=== PATIENT | male | born 1940 | race Caucasian/White ===

== ENCOUNTER → 2017-04-23 | Outpatient (CLI) | payer OTHER, BC ==
[2017-04-23 18:15] LABS: BASO % 0.3 %; BASO ABS # 0.02 K/uL (0-0.2); COMPLETE YES; EOS % 3.9 %; HEMATOCRIT 45.6 % (42-52); IG% 0.3 %; LYMPH % 22.2 %; LYMPH ABS # 1.43 K/uL (1.2-3.4); MEAN CELL VOLUME 83.7 fL (80-100); MEAN CORPUSCULAR HEMOGLOBIN 27.3 pg (25-34); MEAN CORPUSCULAR HGB CONC 32.7 g/dl (32-36); MEAN PLATELET VOLUME 10.7 fL (7.4-10.4); MONO % 12.7 %; NEUT % 60.6 %; PLATELET COUNT 239 K/uL (130-400); RED BLOOD COUNT 5.45 M/uL (4.7-6.1); WHITE BLOOD COUNT 6.45 K/uL (4.8-10.8)
[2017-04-23 18:24] LABS: ALT/SGPT 30 U/L (12-78); AST/SGOT 21 U/L (15-37); BLOOD UREA NITROGEN 20 mg/dl (7-18); BUN/CREATININE RATIO 12.6 (10-20); CALCIUM 8.6 mg/dl (8.5-10.1); CARBON DIOXIDE 28 mmol/L (21-32); CHLORIDE 107 mmol/L (98-107); CHOLESTEROL 157 mg/dl (0-200); GLUCOSE 73 mg/dl (70-99); POTASSIUM 4.7 mmol/L (3.5-5.1); SODIUM 139 mmol/L (136-145); TRIGLYCERIDES 240 mg/dl (0-150); URIC ACID 7.7 mg/dl (2.6-7.2); VERY LOW DENSITY LIPOPROT CALC 48 mg/dl
[2017-04-23 18:33] LABS: ALKALINE PHOSPHATASE 62 U/L (45-117); CHOLESTEROL/HDL RATIO 5.6; HDL CHOLESTEROL 28 mg/dl; LDL CHOLESTEROL CALCULATED 81 mg/dl; TOTAL IRON BINDING CAPACITY 371 mcg/dl (250-450)
[2017-04-23 18:42] LABS: RATIO 11.1 mcg/mg (0-30.0)
[2017-04-24 07:17] LABS: ESTIMATED AVERAGE GLUCOSE 131 mg/dl; HA1C FLAG Normal (Normal)
--- NOTE | 2017-04-30 08:23 | CODING QUERY MEDICAL NECESSITY ---
SUPPORTING DIAGNOSIS NEEDED Chantal MANDUJANO, A supporting diagnosis is required for the test/procedure performed on this patient in order for us to be reimbursed by the patient's insurance. Please provide a supporting diagnosis for the following test/procedure listed below next to the test name along with your signature. *If there is no additional diagnosis for this patient that would support the following test/procedure please document that below next to the test/procedure. Test(s)/Procedure(s) that require a supporting diagnosis: * ([id number]) B12 VITAMIN LEVEL DIAGNOSIS: * ([id number]) FOLATE LEVEL DIAGNOSIS: DATE OF SERVICE: 04/23/17 Provider Signature: Date: Thank you Harjit Purcell [facility] Information Management Once completed, please kindly fax back to [phone] For questions please call [phone]
== END | disposition home or self-care (01) ==
LOC: C.LABMFLN 14:41
PROVIDERS: ATTEND Physician Assistant
DX: E11.9 Type 2 diabetes mellitus without complications (principal); M10.9 Gout, unspecified; N25.81 Secondary hyperparathyroidism of renal origin; I10 Essential (primary) hypertension; K21.9 Gastro-esophageal reflux disease without esophagitis; E78.5 Hyperlipidemia, unspecified; E03.9 Hypothyroidism, unspecified; Z86.2 Personal history of diseases of the blood and blood-forming organs and certain disorders involving the immune mechanism

== ENCOUNTER → 2017-07-02 | Outpatient (CLI) | payer OTHER, BC ==
[2017-07-02 18:27] LABS: ALT/SGPT 29 U/L (12-78); AST/SGOT 22 U/L (15-37)
== END | disposition home or self-care (01) ==
LOC: C.LABMFLN 13:10
PROVIDERS: ATTEND Internal Medicine Cardiovascular Disease
DX: I50.22 Chronic systolic (congestive) heart failure (principal); I25.10 Atherosclerotic heart disease of native coronary artery without angina pectoris

== ENCOUNTER → 2017-08-09 | Outpatient (CLI) | payer OTHER, BC ==
[2017-08-09 12:37] LABS: BASO % 0.3 %; BASO ABS # 0.02 K/uL (0-0.2); EOS % 3.1 %; EOS ABS # 0.22 K/uL (0-0.5); HEMATOCRIT 44.8 % (42-52); HEMOGLOBIN 14.8 g/dL (14.0-18.0); IG# 0.02 K/uL (0.00-0.02); LYMPH % 15.6 %; LYMPH ABS # 1.12 K/uL (1.2-3.4); MEAN CELL VOLUME 87.2 fL (80-100); MEAN CORPUSCULAR HEMOGLOBIN 28.8 pg (25-34); MEAN PLATELET VOLUME 10.8 fL (7.4-10.4); MONO % 11.6 %; MONO ABS # 0.83 K/uL (0.11-0.59); NEUT % 69.1 %; NEUT ABS # 4.96 K/uL (1.4-6.5); PLATELET COUNT 224 K/uL (130-400); RED CELL DISTRIBUTION WIDTH CV 15.6 % (11.5-14.5); WHITE BLOOD COUNT 7.17 K/uL (4.8-10.8)
[2017-08-09 13:15] LABS: ALBUMIN 3.5 gm/dl (3.4-5.0); ALT/SGPT 33 U/L (12-78); AST/SGOT 22 U/L (15-37); BLOOD UREA NITROGEN 19 mg/dl (7-18); CARBON DIOXIDE 29 mmol/L (21-32); CREATININE 1.28 mg/dl (0.60-1.40); GLUCOSE 141 mg/dl (70-99); POTASSIUM 4.2 mmol/L (3.5-5.1); SODIUM 137 mmol/L (136-145)
[2017-08-09 13:20] LABS: ALKALINE PHOSPHATASE 85 U/L (45-117)
== END | disposition home or self-care (01) ==
LOC: C.LABMFLN 10:46
PROVIDERS: ATTEND Physician Assistant
DX: I21.9 Acute myocardial infarction, unspecified (principal); M79.603 Pain in arm, unspecified

== ENCOUNTER → 2017-09-11 | Outpatient (CLI) | payer OTHER, BC | END | disposition home or self-care (01) | LOC: C.LABMFLN 12:43 | PROVIDERS: ATTEND Physician Assistant | DX: I21.9 Acute myocardial infarction, unspecified (principal); R31.9 Hematuria, unspecified ==